=== PATIENT | female | born 1960 ===

== ENCOUNTER 2024-08-05 05:14 | Inpatient (IN) | payer OTHER ==
[2024-07-31 08:48] VITALS: BP 149/89
[2024-07-31 09:08] LABS: HEMOGLOBIN 12.6 g/dL (12.0-15.00); MEAN CELL VOLUME 90.1 fL (80.00-100.00); MEAN CORPUSCULAR HEMOGLOBIN 29.9 pg (27.00-32.0); MEAN CORPUSCULAR HGB CONC 33.2 g/dl (32.0-36.0); PLATELET COUNT 220 K/uL (150-450); RED BLOOD COUNT 4.21 M/uL (4.00-6.00); RED CELL DISTRIBUTION WIDTH 13.4 % (11.5-14.5)
[2024-07-31 09:12] LABS: PH,URINE 5.5 (5.0-8.0); URINE APPEARANCE Clear; URINE BILIRRUBIN Negative (NEGATIVE); URINE BLOOD Negative; URINE COLOR Yellow; URINE GLUCOSE Negative (NEGATIVE); URINE KETONE Negative (NEGATIVE); URINE LEUKOCYTE Negative; URINE NITRATE Negative; URINE PROTEIN Negative (NEGATIVE); URINE UROBILINOGEN 0.2 E.U./dl
[2024-07-31 09:17] LABS: URINE BACTERIA 18.3 uL (0.0-1933); URINE WBC 8.3 uL (0.0-23.2)
[2024-07-31 09:21] LABS: URINE CAST 0.14 uL (0.0-1.40)
[2024-07-31 09:28] LABS: INR 0.95; PARTIAL THROMBOPLASTIN TIME 26.8 SECONDS (22.0-34.0); PROTHROMBIN TIME 10.4 SECONDS (9.0-11.5)
[2024-07-31 09:42] LABS: ALBUMIN 3.5 gm/dL (3.4-5.0); BILIRUBIN TOTAL 0.44 mg/dL (0.3-1.2); CALCIUM 9.5 mg/dL (8.5-10.1); CREATININE SERUM 0.62 mg/dL (0.55-1.02); GFR 96.6; GLOBULINA 3.4 G/DL (2.4-3.5); POTASSIUM 4.22 mEq/L (3.5-5.1); TOTAL PROTEIN 6.9 gm/dL (6.4-8.2)
[~2024-08-05] VITALS: Ht 154.9 cm; Wt 81.6 kg
[~2024-08-05 05:14] MED LIST: COZAAR100 MG PO
[2024-08-05] MEDS ORDERED: CEFAZOLIN SODIUM 1,000 MG VIAL ONE ×2 (06:26→15:38)
[2024-08-05] MEDS ORDERED: MORPHINE SULFATE 4 MG/ML VIAL IV ONE (09:55)
[2024-08-05] MEDS ORDERED: OxyCODONE HCL/APAP UD (PERCOCET) PO PRN (10:00)
[2024-08-05] MEDS ORDERED: MEPERIDINE HCL/PF 50 MG/ML VIAL IM PRN (10:00)
[2024-08-05] MEDS ORDERED: POTASSIUM CHLORIDE-0.45% NACL 20 MEQ/1,000 ML PIGGYBAG IV NR (10:00)
[2024-08-05 16:00] VITALS: BP 127/75; O2SAT 96
[2024-08-05] MEDS ORDERED: CEFAZOLIN SODIUM 1,000 MG VIAL IV SCH ×2 (17:00)
[2024-08-05] MEDS ORDERED: FAMOTIDINE/PF 20 MG/10 ML SYRINGE IV SCH (21:00)
[2024-08-06] VITALS: BP 125/69; O2SAT 96
== END 2024-08-06 11:54 | disposition home or self-care (01) | DRG 583 ==
LOC: CIR.AMB 05:14 → SURH 10:54 → O/R 10:54 → SURH 13:28
PROVIDERS: ADMIT Specialist; ATTEND Specialist
PROC: BH00ZZZ Plain Radiography of Right Breast (ICD-10-PCS; 2024-08-05)
PROC: 0HTT0ZZ Resection of Right Breast, Open Approach (ICD-10-PCS; principal; 2024-08-05 09:45)
DX: D05.11 Intraductal carcinoma in situ of right breast (principal); Z20.822 Contact with and (suspected) exposure to COVID-19